=== PATIENT | male | born 1970 ===

== ENCOUNTER → 2022-11-14 | Outpatient (CLI) | payer OTHER | LOC: MHCPAIN 09:29 | DX: M47.897 Other spondylosis, lumbosacral region (principal); M54.16 Radiculopathy, lumbar region | CPT/HCPCS: G0463 ==

== ENCOUNTER → 2023-12-02 | Outpatient (CLI) | payer OTHER | LOC: MHCPAIN 09:03 | DX: M47.897 Other spondylosis, lumbosacral region (principal); M54.16 Radiculopathy, lumbar region | CPT/HCPCS: G0463 ==